=== PATIENT | male | born 1950 | race Caucasian/White ===

== ENCOUNTER → 2021-08-10 | Outpatient (CLI) | payer MEDICARE, OTHER ==
--- NOTE | 2021-08-10 14:09 | RAD ---
EXAM: Bilateral hands, 3 views. HISTORY: Pain. COMPARISON: None. FINDINGS: 3 views of both hands are obtained. There is mild bilateral first interphalangeal joint spu rring. There is slight radial deviation of the right third distal phalanx and right third distal inte rphalangeal joint spurring. There is no fracture, dislocation or subluxation. IMPRESSION: 1. 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 2. No acute osseous finding. Electronically signed by: Litzy Hodges MD (08/10/2021 2:06 PM) [id number]
== END ==
LOC: RAD 13:39
PROVIDERS: ATTEND Internal Medicine
DX: M19.041 Primary osteoarthritis, right hand (principal); M05.79 Rheumatoid arthritis with rheumatoid factor of multiple sites without organ or systems involvement
CPT/HCPCS: 73130-50

== ENCOUNTER → 2022-01-19 | Outpatient (CLI) | payer MEDICARE, OTHER ==
[2022-01-19 10:37] LABS: BASO # 0.1 x10^3/uL (0.0-0.2); BASO % 1 % (0-3); EOS # 0.2 x10^3/uL (0.0-0.7); EOS % 2 % (0-3); HEMATOCRIT 40.1 % (39.0-53.0); HEMOGLOBIN 13.4 g/dL (13.0-17.5); LYMPH # 1.6 x10^3/uL (1.0-4.8); LYMPH % 15 % (24-48); MEAN CORPUSCULAR HEMOGLOBIN 31 pg (25-35); MEAN CORPUSCULAR HGB CONC 34 g/dL (31-37); MEAN CORPUSCULAR VOLUME 91 fL (79-100); MONO # 0.9 x10^3/uL (0.0-1.1); MONO % 8 % (0-9); NEUT # 7.8 x10^3uL (1.8-7.7); NEUT % 75 % (31-73); PLATELET COUNT 247 x10^3/uL (140-400); RED BLOOD COUNT 4.41 x10^6/uL (4.30-5.70); RED CELL DISTRIBUTION WIDTH 14.2 % (11.5-14.5); WHITE BLOOD COUNT 10.5 x10^3/uL (4.0-11.0)
[2022-01-19 10:44] LABS: ALBUMIN 3.9 g/dL (3.4-5.0); ALBUMIN/GLOBULIN RATIO 1.2 (1.0-1.7); CALCIUM 8.9 mg/dL (8.5-10.1); CREATININE 1.6 mg/dL (0.7-1.3); GFR 42.7; POTASSIUM 3.7 mmol/L (3.5-5.1); TOTAL BILIRUBIN 0.5 mg/dL (0.2-1.0); TOTAL PROTEIN 7.1 g/dL (6.4-8.2)
--- NOTE | 2022-01-19 11:23 | RAD ---
INDICATION: Screening for osteopenia/osteoporosis. Osteoporosis with history of fracture. Graves' di sease. Arthritis. COMPARISON: None. TECHNIQUE: Bone densitometry was performed through the lumbar spine and proximal femur. IMPRESSION: Lumbar Spine: BMD: 1.3 T-Score: 1.2 Range: Normal. Proximal Femur: BMD: 0.7 T-Score: -2.4 Range: On the border between osteopenia and osteoporosis. World Health Organization Criteria for Bone Density: T-Score: > -1.0: Normal Range < -1.0 to -2.5: Osteopenic Range < -2.5: Osteoporotic Range Electronically signed by: Jered Powell MD (01/19/2022 11:21 AM) [id number]
[2022-01-19 12:02] LABS: SEDIMENTATION RATE 11 (0-15)
== END ==
LOC: DXRAD 09:45
PROVIDERS: ATTEND Internal Medicine Rheumatology
DX: M81.0 Age-related osteoporosis without current pathological fracture (principal); I10 Essential (primary) hypertension; R29.898 Other symptoms and signs involving the musculoskeletal system; Z79.52 Long term (current) use of systemic steroids; Z79.899 Other long term (current) drug therapy
CPT/HCPCS: 36415; 77080; 80053; 85025; 85651; 86140

== ENCOUNTER 2022-03-01 08:47 | Emergency (ER) | payer MEDICARE, OTHER ==
--- NOTE | 2022-03-01 09:03 | PHYS DOC ---
Past History Past Medical History: Arthritis General Adult HPI: HPI: Patient is a 71-year-old male who arrives by private vehicle with report of chest pain. Symptoms began shortly prior to arrival. He reports shortness of breath, dizziness and sweating. He has had some less severe chest pain symptoms intermittently for some time, though this is much more severe than usual. Within the last month, he was seen by client account manager take [facility] and had a reportedly normal stress test. No reported syncope. No palpitations. No recent injuries, travel, hospitalizations. EKG shows inferior lead ST elevation TN. Review of Systems: Review of Systems: As per HPI. Physical Exam: PE: Constitutional: Well developed, well nourished, pale, diaphoretic male, appears to be in significant pain, moderate distress. HENT: Normocephalic, atraumatic Eyes: Conjunctiva normal, no discharge. [] Neck: Normal range of motion, no tenderness, supple, no stridor. Trachea is midline. Cardiovascular:Heart rate regular rhythm, 2 radial and +2 posterior tibial pulses bilaterally. No edema. Lungs & Thorax: Clear to auscultation bilateral without rales, rhonchi or wheezes. Equal chest rise. Mild tachypnea. No cyanosis. Abdomen: Abdomen is soft, nondistended, nontender to palpation. Skin: Warm, mild pallor, mild diaphoresis. Back: No tenderness, no CVA tenderness. No step-offs or midline tenderness. No deformity. Extremities: No tenderness, no cyanosis, no clubbing, ROM intact, no edema. No calf tenderness. Neurologic: Alert and oriented X 3, normal motor function, normal sensory function, no focal deficits noted. [] Psychologic: He is anxious but cooperative. EKG: EKG: EKG is interpreted right after performed by nursing staff, see note Rhythm is sinus Rate is [address] elevation in leads II, III, aVF, reciprocal ST depression leads V1, V2 Radiology/Procedures: Radiology/Procedures: IMAGING REPORT Signed PATIENT: KELLY RIOS ACCOUNT: [id number] : 1950 LOCATION: ER AGE: 71 SEX: M EXAM STATUS: REG ER ORD. PHYSICIAN: ANOOP KEATING DO REASON: chest pain PROCEDURE: PORTABLE CHEST 1V XR CHEST 1V History: Reason: chest pain / Spl. Instructions: / History: Comparison: None. Findings: Mild ill-defined mid lung opacities, right greater than left. No pleural effusion. No pneumothorax. Chronic right-sided rib fractures. Normal heart size. Chronic right-sided clavicular fracture. Impression: 1. Mild ill-defined mid lung opacities, may represent atelectasis or developing consolidations. If persistent clinical concern, recommend follow-up. Electronically signed by: Jeremie Fraser DO (03/01/2022 9:59 AM) [id number] DICTATED AND SIGNED BY: JEREMIE FRASER DO DATE: 03/01/22 0957 CC: LY JOHNSON MD; ANOOP KEATING DO ~ Heart Score: C/O Chest Pain: Yes HEART Score for Chest Pain: HEART Score for Chest Pain Response (Comments) Value History Highly Suspicious [address] Depression 2 Age > 65 2 Risk Factors 1 or 2 Risk Factors 1 Troponin >1-<3x Normal Limit 1 Total 8 Risk Factors: Risk Factors: DM, Current or recent (<one month) smoker, HTN, HLP, family history of CAD, obesity. Risk Scores: Score 0 - 3: 2.5% MACE over next 6 weeks - Discharge Home Score 4 - 6: 20.3% MACE over next 6 weeks - Admit for Clinical Observation Score 7 - 10: 72.7% MACE over next 6 weeks - Early Invasive Strategies Course & Med Decision Making: Course & Med Decision Making Pertinent Labs and Imaging studies reviewed. (See chart for details) Code STEMI was activated after I reviewed the EKG. I contacted Dr. Agosto directly, he reviewed the EKG, accepts the patient to the [facility] at [facility]. The patient is given p.o. aspirin, 4000 units IV heparin, IV morphine and IV Zofran. IV fluids are given. He is kept n.p.o. otherwise. I have discussed the findings and plan of care with the patient and his . He understands the plan for emergent transfer, need for PCI. He understands, consents for this. I spoke with the hospitalist, Dr. Coyne, who accepts the patient for admission. [place] Disclaimer: [place] Disclaimer: This electronic medical record was generated, in whole or in part, using a voice recognition dictation system. Departure Departure: Impression: Primary Impression: ST elevation TN (STEMI) Qualified Codes: I21.3 - ST elevation (STEMI) myocardial infarction of unspecified site Disposition: 02 [facility] ([facility]) Admitting Physician: Other (Dr. Coyne at [facility]) Condition: GUARDED Referrals: LY JOHNSON MD (PCP) ANOOP KEATING DO Mar 01, 2022 09:03
[2022-03-01 09:15] VITALS: BP 143/70
[2022-03-01] MEDS ORDERED: IV NORMAL SALINE 1,000ML 1,000 ML IV ONE (09:15)
[2022-03-01] MEDS ORDERED: ASPIRIN CHEWABLE 81 MG TABLET. PO ONE (09:15)
[2022-03-01] MEDS ORDERED: HEPARIN for IV BOLUS 10,000 UNIT/10 ML VIAL. IV ONE (09:15)
[2022-03-01] MEDS ORDERED: MORPHINE SULFATE 4 MG/ML DISP.SYRIN. IV ONE (09:15)
[2022-03-01 09:21] LABS: BASO # 0.1 x10^3/uL (0.0-0.2); BASO % 1 % (0-3); EOS # 0.2 x10^3/uL (0.0-0.7); EOS % 2 % (0-3); HEMATOCRIT 41.1 % (39.0-53.0); HEMOGLOBIN 13.7 g/dL (13.0-17.5); LYMPH # 3.7 x10^3/uL (1.0-4.8); LYMPH % 32 % (24-48); MEAN CORPUSCULAR HEMOGLOBIN 30 pg (25-35); MEAN CORPUSCULAR HGB CONC 33 g/dL (31-37); MEAN CORPUSCULAR VOLUME 90 fL (79-100); MONO # 1.4 x10^3/uL (0.0-1.1); MONO % 12 % (0-9); NEUT # 6.2 x10^3uL (1.8-7.7); NEUT % 53 % (31-73); PLATELET COUNT 333 x10^3/uL (140-400); RED BLOOD COUNT 4.58 x10^6/uL (4.30-5.70); RED CELL DISTRIBUTION WIDTH 13.9 % (11.5-14.5); WHITE BLOOD COUNT 11.6 x10^3/uL (4.0-11.0)
[2022-03-01] MEDS ORDERED: ONDANSETRON PF 4 MG/2 ML VIAL. IVP ONE (09:30)
[2022-03-01 09:32] LABS: CALCIUM 8.9 mg/dL (8.5-10.1); CREATININE 1.8 mg/dL (0.7-1.3); GFR 37.3
--- NOTE | 2022-03-01 10:01 | RAD ---
XR CHEST 1V History: Reason: chest pain / Spl. Instructions: / History: Comparison: None. Findings: Mild ill-defined mid lung opacities, right greater than left. No pleural effusion. No pneumothorax. C hronic right-sided rib fractures. Normal heart size. Chronic right-sided clavicular fracture. Impression: 1. Mild ill-defined mid lung opacities, may represent atelectasis or developing consolidations. If p ersistent clinical concern, recommend follow-up. Electronically signed by: Jeremie Fraser DO (03/01/2022 9:59 AM) [id number]
--- NOTE | 2022-03-01 20:53 | EKG ---
[address] [address] Test Date: 2022-03-01 Test Time: 08:53:18 Pat Name: KELLY RIOS Department: Room: Gender: M Faculty Neuropsychologist: : 1950 Requested By: ANOOP KEATING Order Number: [id number] Reading MD: Measurements Intervals [place] Rate: 89 P: 47 ND: 176 QRS: 10 QRSD: 104 T: 86 QT: 378 QTc: 461 Interpretive Statements SINUS RHYTHM VENTRICULAR PREMATURE COMPLEX(ES) RVH WITH REPOLARIZATION ABNORMALITY QRS(T) CONTOUR ABNORMALITY CONSISTENT WITH INFERIOR INFARCT POSSIBLY RECENT ST-T ELEVATION, CONSIDER ACUTE INFERIOR INFARCT ABNORMAL ECG RI6.01 No previous ECG available for comparison
== END 2022-03-01 09:26 | disposition short-term general hospital (02) ==
LOC: ER 08:47
DX: I21.3 ST elevation (STEMI) myocardial infarction of unspecified site (principal)
CPT/HCPCS: 36415; 71045; 80048; 84484; 85025; 93005; 96361; 96374; 96375; 99285; J1644; J2270; J2405; J7030

== ENCOUNTER → 2022-04-14 | Outpatient (CLI) | payer MEDICARE, OTHER ==
[2022-04-14 15:41] LABS: ALBUMIN 3.6 g/dL (3.4-5.0); ALBUMIN/GLOBULIN RATIO 1.1 (1.0-1.7); CREATININE 2.8 mg/dL (0.7-1.3); GFR 22.4; POTASSIUM 4.9 mmol/L (3.5-5.1); TOTAL BILIRUBIN 0.3 mg/dL (0.2-1.0); TOTAL PROTEIN 6.9 g/dL (6.4-8.2)
== END ==
LOC: LAB 14:47
PROVIDERS: ATTEND Internal Medicine
DX: M05.79 Rheumatoid arthritis with rheumatoid factor of multiple sites without organ or systems involvement (principal); Z79.899 Other long term (current) drug therapy
CPT/HCPCS: 36415; 80053